=== PATIENT | female | born 1960 | race Caucasian/White ===

== ENCOUNTER 2020-02-23 | Emergency (ER) | payer OTHER ==
--- NOTE | 2020-02-23 00:59 | EDM.PDOC ---
ED HPI GENERAL MEDICAL PROBLEM - General Chief Complaint: Neuro Symptoms/Deficits Stated Complaint: possable stroke Time Seen by Provider: 02/23/20 00:23 Source of Information: Reports: Patient History Limitations: Reports: No Limitations - History of Present Illness INITIAL COMMENTS - FREE TEXT/NARRATIVE: Pt states she was sitting, watching TV and reading emails on her cell phone when she began feeling tingling and numbness in her right hand which ascending up to her right elbow and within a minutes felt numbness and tingling to her right lower jaw area and tongue. No difficulty with her speech. All sx resolved within a minute and had her call her daughter who is an ICU nurse who immediately came to their house and did a thorough neuro exam on her and had no residual neuro abnormality. Pt state she has no neuro sx now and has no significant past medical problems, no surgeries reported. Onset: Today Onset Date: 02/23/20 Onset Time: 23:00 Duration: Minutes: Location: Reports: Face, Upper Extremity, Right Severity: Mild Improves with: Reports: Rest Worsens with: Reports: None Treatments DOCUMENTATION LIAISON: Reports: Acetaminophen - Related Data Allergies Allergy/AdvReac Type Severity Reaction Status Date / Time No Known Allergies Allergy Verified 02/23/20 00:27 ED ROS GENERAL - Review of Systems Review Of Systems: See Below Constitutional: Reports: No Symptoms. Denies: Fever, Malaise, Weakness HEENT: Reports: No Symptoms. Denies: Dental Pain, Eye Discharge, Eye Pain, Vertigo, Vision Change Respiratory: Reports: No Symptoms. Denies: Shortness of Breath, Cough Cardiovascular: Reports: No Symptoms. Denies: Chest Pain, Dyspnea on Exertion Endocrine: Reports: No Symptoms GI/Abdominal: Reports: No Symptoms : Reports: No Symptoms Musculoskeletal: Reports: No Symptoms. Denies: Neck Pain, Shoulder Pain, Arm Pain, Hand Pain, Muscle Pain, Muscle Stiffness Skin: Reports: No Symptoms Neurological: Reports: Numbness, Paresthesia, Tingling. Denies: Confusion, Dizziness, Headache, Seizure, Syncope, Tremors, Trouble Speaking, Difficulty Walking, Weakness, Change in Speech, Gait Disturbance Psychiatric: Reports: No Symptoms ED EXAM, NEURO - Physical Exam Exam: See Below Exam Limited By: No Limitations General Appearance: Alert, WD/WN, No Apparent Distress. No: Anxious, Mild Distress Ears: Normal External Exam, Normal Canal, Hearing Grossly Normal, Normal TMs Nose: Normal Inspection, Normal Mucosa, No Blood Throat/Mouth: Normal Inspection, Normal Lips, Normal Teeth, Normal Gums, Normal Oropharynx, Normal Voice, No Airway Compromise Head Exam: Atraumatic, Normocephalic Neck: Normal Inspection, Supple, Non-Tender, Full Range of Motion Respiratory/Chest: No Respiratory Distress, Lungs Clear, Normal Breath Sounds, No Accessory Muscle Use Cardiovascular: Normal Peripheral Pulses, Regular Rate, Rhythm, No Edema GI/Abdominal: Normal Bowel Sounds, Soft, Non-Tender Neurological: Alert, Normal Mood/Affect, Normal Dorsiflexion, CN II-XII Intact, Normal Plantar Flexion, Normal Gait, Normal Reflexes, No Motor/Sensory Deficits, Oriented x 3. No: Ataxia Back Exam: Normal Inspection, Full Range of Motion Extremities: Normal Inspection, Normal Range of Motion, Non-Tender, Normal Capillary Refill Psychiatric: Normal Affect, Normal Mood. No: Anxious, Depressed Mood Skin Exam: Warm, Dry, Intact, Normal Color EKG INTERPRETATION EKG Date: 02/23/20 Rhythm: NSR [place]: Normal P-Wave: Present QRS: Normal ST-T: Normal QT: Normal Comparison: NA - No Prior EKG Course - Vital Signs Last Recorded V/S: Last Vital Signs Temp 98.3 F 02/23/20 00:15 Pulse 70 02/23/20 00:15 Resp 18 02/23/20 00:15 BP 125/63 02/23/20 00:15 Pulse Ox 99 02/23/20 00:15 - Orders/Labs/Meds Orders: Active Orders 24 hr Category Date Time Status Head wo Cont [CT] Stat Exams 02/23/20 00:09 Taken Labs: Laboratory Tests 02/23/20 02/23/20 02/23/20 Range/Units 00:40 00:40 00:40 WBC 6.4 (4.0-11.0) K/uL RBC 4.48 (3.80-5.80) M/uL Hgb 14.1 (11.5-16.5) g/dL Hct 40.2 (37.0-47.0) % MCV 90 (76-96) fL MCH 31.5 (27.0-32.0) pg MCHC 35.1 H (31.0-35.0) g/dL RDW 13.6 (11.0-16.0) % Plt Count 180 (150-500) K/uL MPV 9.6 (6.0-10.0) fL Neut % (Auto) 50.9 (45.0-70.0) % Lymph % (Auto) 38.2 (20.0-40.0) % [place] % (Auto) 8.9 (3.0-10.0) % Eos % (Auto) 1.7 (1.0-5.0) % Baso % (Auto) 0.3 (0.0-0.5) % Neut # (Auto) 3.27 (2.00-7.50) K/uL Lymph # (Auto) 2.45 (1.50-4.00) K/uL [place] # (Auto) 0.57 (0.20-0.80) K/uL Eos # (Auto) 0.11 (0.04-0.40) K/uL Baso # (Auto) 0.02 (0.02-0.10) K/uL PT 10.8 (9.0-11.5) sec INR 1.1 (1.0-3.5) APTT 26.7 (24.4-33.2) SECONDS Sodium 141 (136-145) mmol/L Potassium 3.5 (3.5-5.1) mmol/L Chloride 105 (98-107) mmol/L Carbon Dioxide 28.4 (21.0-32.0) mmol/L Anion Gap 11.1 (5.0-15.0) mmol/L BUN 17 (8-26) mg/dL Creatinine 0.88 (0.55-1.02) mg/dL Est Cr Clr Drug Dosing TNP Estimated GFR (MDRD) > 60 (>60) MLS/MIN BUN/Creatinine Ratio 19.3 (6-25) Glucose 103 H (74-100) mg/dL Calcium 8.7 (8.5-10.1) mg/dL Total Bilirubin 1.2 H (0.0-1.0) mg/dL AST 19 (15-37) U/L ALT 22 (12-78) U/L Alkaline Phosphatase 82 (46-116) U/L Troponin I < 0.017 (0.000-0.060) ng/mL Total Protein 7.5 (6.4-8.2) g/dL Albumin 4.3 (3.4-5.0) g/dL Globulin 3.2 (2.2-4.2) g/dL Albumin/Globulin Ratio 1.3 (0.8-2.0) - Re-Assessments/Exams Free Text/Narrative Re-Assessment/Exam: 02/23/20 01:03 CT - negative EKG - normal Labss - Free Text/Narrative Re-Assessment/Exam: 02/23/20 01:49 Spoke with hospitalist at [facility] (RAYMOND Maxwell) who advised transfer and admission for MRI in AM. Pt and did not want transfer by EMS and signed AMA and chose to drive to hospital on own. Pt was totally asymptomatic for TIA/CVA at time of discharge. Departure - Departure Time of Disposition: 01:46 Disposition: Against Medical Advice 07 Clinical Impression: TIA (transient ischemic attack) - Discharge Information *PRESCRIPTION DRUG MONITORING PROGRAM REVIEWED*: Not Applicable *COPY OF PRESCRIPTION DRUG MONITORING REPORT IN PATIENT LISBET: Not Applicable Instructions: Transient Ischemic Attack Forms: ED Department Discharge, Interfacility Transfer [facility] Sepsis Event Note (ED) - Focused Exam Vital Signs: Vital Signs Temp Pulse Resp BP Pulse Ox 02/23/20 00:15 98.3 F 70 18 125/63 99 - My Orders Last 24 Hours: My Active Orders 02/23/20 00:09 Head wo Cont [CT] Stat - Assessment/Plan Last 24 Hours: My Active Orders 02/23/20 00:09 Head wo Cont [CT] Stat
--- NOTE | 2020-02-23 14:00 | CT ---
DATE OF SERVICE: 02/23/2020 CLINICAL DATA: Neuro symptoms. UNENHANCED BRAIN CT: Multislice acquisition through the brain without IV contrast was performed. No priors. No masses or mass effect. No intracranial hemorrhage. No evidence of acute or subacute infarct. No osseous abnormalities. IMPRESSION: No acute intracranial abnormalities. [id number] [facility]
== END 2020-02-23 02:00 ==
LOC: LB.ED
DX: G45.9 Transient cerebral ischemic attack, unspecified (principal)
CPT/HCPCS: 36415; 70450; 80053; 84484; 85025; 85610; 85730; 99285-25